=== PATIENT | female | born 1980 | race Caucasian/White ===

== ENCOUNTER 2020-06-21 12:06 | Outpatient (REF) | payer OTHER, SELFPAY ==
--- NOTE | 2020-06-21 12:14 | XR_ITS ---
EXAMINATION: XR CHEST CLINICAL INFORMATION: Positive PPD. COMPARISON: None TECHNIQUE: Frontal view of the chest was obtained. FINDINGS: The lungs are well expanded. There is no focal consolidation, edema, or effusion. No pneumothorax. The cardiomediastinal silhouette is within normal limits. No acute osseous abnormality. XR/XR chest 1V IMPRESSION: Clear lungs.
== END 2020-06-21 12:07 | disposition home or self-care (01) ==
LOC: HO.HMGCX 12:06
PROVIDERS: PCP Internal Medicine; Visit Provider Physician Assistant
DX: R76.11 Nonspecific reaction to tuberculin skin test without active tuberculosis (principal)
CPT/HCPCS: 71045

== ENCOUNTER → 2020-09-26 07:46 | Outpatient (BNVA) | payer OTHER, SELFPAY | PROVIDERS: Visit Provider Orthopaedic Surgery ==

== ENCOUNTER 2021-05-23 08:03 | Outpatient (REF) | payer OTHER, SELFPAY ==
[2021-05-23 11:15] LABS: MANUAL DIFF FLAG NO
[2021-05-23 11:24] LABS: Basophils Percent Auto 0.5 % (0-2); Eosinophils Absolute Auto 0.1 X10*3/uL (0.0-0.4); Eosinophils Percent Auto 1.3 % (0-4); Hemoglobin 12.8 g/dl (12.0-16.0); Imm Gran Abs Auto 0.01 X10*3/uL (0.00-0.03); Imm Gran Pct Auto 0.2 % (0.0-0.4); Lymphocytes Absolute Auto 2.7 X10*3/uL (1.2-4.9); Lymphocytes Percent Auto 42.9 % (20-40); Mean Corpuscular HGB Conc 32.8 g/dl (31.0-35.0); Mean Corpuscular Hemoglobin 28.6 pg (27.0-33.0); Mean Corpuscular Volume 87.2 fL (80-98); Mean Platelet Volume 9.7 fL (9.4-12.3); Monocytes Absolute Auto 0.4 X10*3/uL (0.1-1.2); Monocytes Percent Auto 6.3 % (2-11); Neutrophils Absolute Auto 3.1 X10*3/uL (2.0-8.3); Neutrophils Percent Auto 48.8 % (45-73); Platelet Count 275 X10*3/uL (160-400); Red Blood Count 4.47 X10*6/uL (4.20-5.50); White Blood Count 6.3 X10*3/uL (4.8-10.8)
[2021-05-23 11:43] LABS: Anion Gap 12 (12-20); Blood Urea Nitrogen 12 mg/dL (9-16); Calcium 8.9 mg/dL (8.4-10.2); Carbon Dioxide 23 mmol/L (22-29); Chloride 107 mmol/L (96-108); Estimated Glomerular Filt Rate > 60; Glucose Random 87 mg/dL (60-115); Potassium 3.9 mmol/L (3.3-5.1); Sodium 138 mmol/L (135-145)
== END 2021-05-23 08:04 | disposition home or self-care (01) ==
LOC: HO.HMGCLDS 08:03
PROVIDERS: PCP Internal Medicine; Visit Provider Internal Medicine
DX: Z00.00 Encounter for general adult medical examination without abnormal findings (principal); R51.9 Headache, unspecified
CPT/HCPCS: 36415; 80048; 85025

== ENCOUNTER 2021-07-04 08:17 | Outpatient (REF) | payer OTHER, SELFPAY ==
--- NOTE | ~2021-07-04 | US_ITS ---
EXAMINATION: US ABDOMEN COMPLETE CLINICAL INFORMATION: Unspecified abdominal pain. COMPARISON: None TECHNIQUE: Real-time imaging of the abdominal viscera. FINDINGS: PANCREAS: Normal. ABDOMINAL AORTA: The proximal, mid, and distal segments are normal in caliber. INFERIOR VENA CAVA: Visualized portions are normal. LIVER: The liver is normal in size. The liver contour is normal. Parenchymal echogenicity is normal. There is anechoic cyst in the left hepatic lobe measuring 2.0 x 1.6 x 2.0 cm. There is no intrahepatic biliary duct dilatation seen. GALLBLADDER: There are several echogenic stones with shadowing and positive CHERYL sign. The gallbladder is physiologically distended. The neck of the gallbladder is prominent. No evidence of pericholecystic fluid. COMMON BILE DUCT: Normal in caliber measuring 0.2 cm in diameter. RIGHT KIDNEY: Normal. No hydronephrosis. No renal calculi or focal parenchymal lesions. The kidney measures 11.6 cm in maximum dimension. LEFT KIDNEY: Normal. No hydronephrosis. No renal calculi or focal parenchymal lesions. The kidney measures 12.3 cm in maximum dimension. SPLEEN: Normal. The spleen measures 10.4 cm in maximum dimension. FREE FLUID: None. US/US abdomen complete IMPRESSION: Gallstones with a prominent CHERYL sign. The neck of the gallbladder is prominent. Left hepatic lobe . Rest of the abdominal ultrasound is unremarkable.
== END 2021-07-04 08:18 | disposition home or self-care (01) ==
LOC: HO.US 08:17
PROVIDERS: PCP Internal Medicine; Visit Provider Internal Medicine
DX: R10.9 Unspecified abdominal pain (principal)
CPT/HCPCS: 76700

== ENCOUNTER → 2021-08-08 13:39 | Outpatient (BNVA) | payer OTHER, SELFPAY | PROVIDERS: PCP Internal Medicine; Referring Provider Internal Medicine; Visit Provider Surgery ==

== ENCOUNTER 2022-03-30 19:43 | Inpatient (IN) | payer BC, SELFPAY ==
--- NOTE | 2022-03-30 | ECG_ITS ---
Test Reason : CP Blood Pressure : / mmHG Vent. Rate : 070 BPM Atrial Rate : 070 BPM P-R Int : 156 ms QRS Dur : 096 ms QT Int : 412 ms P-R-T Axes : 026 041 036 degrees QTc Int : 444 ms Normal sinus rhythm T wave abnormality, consider anterior ischemia Abnormal ECG When compared with ECG of 10-FEB-2018 19:29, T wave inversion more evident in Anterior leads Referred By: Generic ED Physician Electronically Signed By:SINDHU CRANDALL
--- NOTE | ~2022-03-30 | US_ITS ---
EXAMINATION: US ABDOMEN LIMITED CLINICAL INFORMATION: Right upper quadrant abdomen pain. COMPARISON: 07/04/2021 TECHNIQUE: Real-time imaging of the right upper quadrant abdominal viscera. FINDINGS: PANCREAS: Obscured by overlying bowel gas. LIVER: The liver is normal in size. The liver contour is normal. Parenchymal echogenicity is normal. Redemonstrated left hepatic lobe cyst measuring 1.7 x 1.2 x 1.7 cm. There is no intrahepatic biliary duct dilatation seen. GALLBLADDER: There are numerous gallstones resulting in a wall echo shadow sign. Borderline gallbladder wall thickening. Right upper quadrant tenderness was reported during the exam. COMMON BILE DUCT: Normal in caliber measuring 0.4 cm in diameter. RIGHT KIDNEY: No hydronephrosis. No renal calculi or focal parenchymal lesions. The kidney measures 12.2 cm in maximum dimension. FREE FLUID: None. US/US abdomen limited IMPRESSION: Cholelithiasis with borderline gallbladder wall thickening and right upper quadrant tenderness. If there is clinical concern for acute cholecystitis, nuclear medicine hepatobiliary scan may be helpful.
[2022-03-30 19:46] VITALS: BP 132/55; PULSE 74; RESP 18; TEMP 36.8; O2SAT 100; BMI 31.0
[2022-03-30 20:15] LABS: MANUAL DIFF FLAG NO
[2022-03-30 20:16] LABS: Basophils Percent Auto 0.5 % (0-2); Eosinophils Absolute Auto 0.1 X10*3/uL (0.0-0.4); Eosinophils Percent Auto 1.3 % (0-4); Hematocrit 36.5 % (37.0-47.0); Hemoglobin 12.2 g/dl (12.0-16.0); Imm Gran Abs Auto 0.02 X10*3/uL (0.00-0.03); Imm Gran Pct Auto 0.2 % (0.0-0.4); Lymphocytes Absolute Auto 4.5 X10*3/uL (1.2-4.9); Lymphocytes Percent Auto 51.4 % (20-40); Mean Corpuscular HGB Conc 33.4 g/dl (31.0-35.0); Mean Corpuscular Hemoglobin 28.2 pg (27.0-33.0); Mean Corpuscular Volume 84.5 fL (80.0-98.0); Mean Platelet Volume 9.1 fL (9.4-12.3); Monocytes Absolute Auto 0.6 X10*3/uL (0.1-1.2); Monocytes Percent Auto 6.9 % (2-11); Neutrophils Absolute Auto 3.4 x10*3/uL (2.0-8.3); Neutrophils Percent Auto 39.7 % (45-73); Platelet Count 235 X10*3/uL (160-400); Red Blood Count 4.32 X10*6/uL (4.20-5.50); Red Cell Distribution Width 11.9 % (11.0-16.0); White Blood Count 8.7 X10*3/uL (4.8-10.8)
--- NOTE | 2022-03-30 20:20 | ED.ABDPAIN ---
HPI - Abdominal Pain General Chief Complaint: Abdominal Pain Stated Complaint: trouble breathing Source: patient Mode of arrival: ambulatory Limitations: no limitations History of Present Illness HPI narrative: 41-year-old female presents with sharp, intermittent, squeezing, intense right upper quadrant abdominal pain that took her breath away approximately 20 minutes after eating. She has known gallbladder disease, was evaluated by Dr. Kelly approximately 6 months ago with suggestion for cholecystectomy if her symptoms persisted. She has altered her diet over the past 6 months, and states that this pain has been the worst and most intense out of all her gallbladder attacks. She does not report fevers, chills, chest pain or pressure, palpitations, abdominal distention, dysuria, hematuria, or weakness. MD elicited complaint: abdominal pain Pertinent past history: other (Cholelithiasis) Onset (ago): hour(s) Pain Consistency: intermittent and colicky Location: RUQ Severity: severe Pain scale (0-10): 10 Quality: cramping, stabbing and sharp Radiation: back Exacerbating factors: eating and other (Palpation) Relieving factors: nothing Associated symptoms: denies other symptoms Related Data Home Medications Medication Instructions Recorded Confirmed No Known Home Meds 05/17/21 08/08/21 Allergies Allergy/AdvReac Type Severity Reaction Status Date / Time poison robbie extract Allergy Unknown UNKNOWN Verified 03/30/22 19:49 [POISON ROBBIE] Review of Systems Review of Systems Constitutional: No Fever, No Chills ENT/Mouth: No Ear Pain, No Hoarseness, No sore throat Eyes: No Eye Pain, No Swelling, No Redness, No Foreign Body Cardiovascular: No Chest Pain, No SOB Respiratory: No Cough, No Dyspnea Gastrointestinal: No Nausea, No Vomiting, No Diarrhea, positive right upper quadrant abdominal Pain Genitourinary: No Dysuria, No Hematuria Musculoskeletal: No joint pain, No Myalgias, No Joint Swelling Skin: No Skin lacerations, No rash Neuro: No Weakness, No Numbness, No Paresthesias, No Loss of Consciousness, No Dizziness, No Headache Psych: No Anxiety/Panic, No Depression Heme/Lymph: no easy bruising, no Lymphadenopathy Endocrine: No Polyuria, No Polydipsia Yes all other systems are reviewed and are negative [facility] Past Medical History Attestation statement: The following information was validated with the patient. Source: old records reviewed Medical History (Updated 03/31/22 @ 00:28 by Missy Quijano NP) Gallstone Surgical History No pertinent past surgical history Social History Social History Housing: House Alcohol intake: never Patient Tobacco Use Status: Never used Tobacco e-Cigarette/Vaping Use: Never Used Use of substances other than those prescribed or required for medical reasons: No Advance Directives: No Advance Directives Information Provided: No Patient : No Current occupational status: employed Physical Exam ED Vital Signs: Vital Signs - 24 hr 03/30/22 19:46 03/30/22 23:12 03/30/22 23:45 Temperature 98.2 F Pulse Rate 74 71 79 Respiratory Rate 18 18 Blood Pressure 132/55 L 109/63 129/75 Pulse Oximetry 100 100 100 Oxygen Delivery Method Room Air Room Air Room Air BMI result Body Mass Index 31.0 Appearance: Alert. Oriented X3. No acute distress. Eyes: Pupils equal, round and reactive to light. Sclera nonicteric. ENT: Pharynx normal. Neck: Normal inspection. Neck supple. CVS: Normal heart rate and rhythm. Pulses normal. Respiratory: No respiratory distress. Breath sounds normal. Abdomen: Soft and right upper quadrant tenderness to palpation. Positive Barrera, negative McBurney. Skin: Skin warm and dry. Normal skin color. Normal skin turgor. Extremities: No lower extremity edema. Moves all extremities against resistance. Neuro: No motor deficit. No sensory deficit. Cranial nerves 2-12 intact. Course Course Course Narrative: 41-year-old female presents with right upper quadrant pain that started after eating. Has known gallbladder disease, was evaluated by Dr. Kelly approximately 6 months ago for similar circumstances and was recommended to have a cholecystectomy if symptoms persisted. She presents today because the right upper quadrant abdominal pain is so sharp, intense, squeezing and has taking her breath away. She states this is the worst colic episode that she has had since her evaluation. Will order labs, pain medications, fluids, and right upper quadrant abdominal sounds. Patient did decline morphine, she states that she is unsure about taking this medication because she has to drive. 00:00 ultrasound indicative of cholelithiasis with borderline gallbladder wall thickening and right upper quadrant tenderness on exam. CBC is within normal limits, BUN 24, was given a L of fluids, AST 79, ALT 41, lipase normal, alk-phos is normal. I did discuss this case with Dr. Quach, consulted with Dr. De Guzman, plan of care is to admit for cholecystectomy in the morning. I will keep patient NPO. Patient verbalized understanding of this and agrees to this plan. Consultations Consultation #1: Gab Time: 00:08 MDM - Abdominal Pain MDM Narrative Medical decision making narrative: Cholecystitis, cholelithiasis Differential Diagnosis Differential diagnosis: Likely abdominal pain Medical Records Attestation: I reviewed the patient's medical records. Lab Data Attestation: I reviewed the patient's lab results. Result diagrams: 03/30/22 20:08 03/30/22 20:08 Labs: Lab Results 03/30/22 03/30/22 03/30/22 Range/Units 20:08 20:08 20:23 WBC 8.7 (4.8-10.8) X10*3/uL RBC 4.32 (4.20-5.50) X10*6/uL Hgb 12.2 (12.0-16.0) g/dl Hct 36.5 L (37.0-47.0) % MCV 84.5 (80.0-98.0) fL MCH 28.2 (27.0-33.0) pg MCHC 33.4 (31.0-35.0) g/dl RDW 11.9 (11.0-16.0) % Plt Count 235 (160-400) X10*3/uL MPV 9.1 L (9.4-12.3) fL Immature Gran % (Auto) 0.2 (0.0-0.4) % Neut % (Auto) 39.7 L (45-73) % Lymph % (Auto) 51.4 H (20-40) % [place] % (Auto) 6.9 (2-11) % Eos % (Auto) 1.3 (0-4) % Baso % (Auto) 0.5 (0-2) % Lymph # (Auto) 4.5 (1.2-4.9) X10*3/uL [place] # (Auto) 0.6 (0.1-1.2) X10*3/uL Eos # (Auto) 0.1 (0.0-0.4) X10*3/uL Baso # (Auto) 0.0 (0.0-0.2) X10*3/uL Abs Immat Gran (auto) 0.02 (0.00-0.03) X10*3/uL Absolute Neuts (auto) 3.4 (2.0-8.3) x10*3/uL Absolute Nucleated RBC 0.000 (0.0-0.012) X10*3/uL Nucleated RBC % (auto) 0.0 (0.0-0.2) /100WBC Sodium 139 (135-145) mmol/L Potassium 3.7 (3.3-5.1) mmol/L Chloride 103 (96-108) mmol/L Carbon Dioxide 26 (22-29) mmol/L Anion Gap 14 (12-20) BUN 24 H (9-16) mg/dL Creatinine 0.81 (0.5-1.4) mg/dL Estim Creat Clear Calc 104.0 Estimated GFR > 60 Random Glucose 100 (60-115) mg/dL Calcium 8.7 (8.4-10.2) mg/dL Total Bilirubin 0.7 (0.0-1.0) mg/dL AST 79 H (5-31) U/L ALT 41 H (0-31) U/L Alkaline Phosphatase 65 (39-117) U/L Total Protein 6.9 (6.5-8.0) g/dL Albumin 4.2 (3.5-5.0) g/dL Lipase 70 (8-78) U/L Urine Color Yellow Urine Appearance Turbid Urine pH 7.5 (5.0-8.0) Ur Specific [place] 1.025 (1.005-1.025) Urine Protein Negative (Neg-Trace) mg/dL Urine Glucose (UA) Negative (Negative) mg/dL Urine Ketones Negative (Negative) mg/dL Urine Blood Moderate (2+) H (Negative) Urine Nitrite Negative (Negative) Ur Leukocyte Esterase Negative (Negative) Urine RBC >20 H (0-2) /HPF Urine WBC 0-5 (0-5) /HPF Ur Squamous Epith Cells 0-2 (0-2) /HPF Urine Bacteria None Seen (None Seen) Hyaline Casts 0-2 (0-2) /LPF Urine Test (NEGATIVE) 03/30/22 Range/Units 20:23 WBC (4.8-10.8) X10*3/uL RBC (4.20-5.50) X10*6/uL Hgb (12.0-16.0) g/dl Hct (37.0-47.0) % MCV (80.0-98.0) fL MCH (27.0-33.0) pg MCHC (31.0-35.0) g/dl RDW (11.0-16.0) % Plt Count (160-400) X10*3/uL MPV (9.4-12.3) fL Immature Gran % (Auto) (0.0-0.4) % Neut % (Auto) (45-73) % Lymph % (Auto) (20-40) % [place] % (Auto) (2-11) % Eos % (Auto) (0-4) % Baso % (Auto) (0-2) % Lymph # (Auto) (1.2-4.9) X10*3/uL [place] # (Auto) (0.1-1.2) X10*3/uL Eos # (Auto) (0.0-0.4) X10*3/uL Baso # (Auto) (0.0-0.2) X10*3/uL Abs Immat Gran (auto) (0.00-0.03) X10*3/uL Absolute Neuts (auto) (2.0-8.3) x10*3/uL Absolute Nucleated RBC (0.0-0.012) X10*3/uL Nucleated RBC % (auto) (0.0-0.2) /100WBC Sodium (135-145) mmol/L Potassium (3.3-5.1) mmol/L Chloride (96-108) mmol/L Carbon Dioxide (22-29) mmol/L Anion Gap (12-20) BUN (9-16) mg/dL Creatinine (0.5-1.4) mg/dL Estim Creat Clear Calc Estimated GFR Random Glucose (60-115) mg/dL Calcium (8.4-10.2) mg/dL Total Bilirubin (0.0-1.0) mg/dL AST (5-31) U/L ALT (0-31) U/L Alkaline Phosphatase (39-117) U/L Total Protein (6.5-8.0) g/dL Albumin (3.5-5.0) g/dL Lipase (8-78) U/L Urine Color Urine Appearance Urine pH (5.0-8.0) Ur Specific [place] (1.005-1.025) Urine Protein (Neg-Trace) mg/dL Urine Glucose (UA) (Negative) mg/dL Urine Ketones (Negative) mg/dL Urine Blood (Negative) Urine Nitrite (Negative) Ur Leukocyte Esterase (Negative) Urine RBC (0-2) /HPF Urine WBC (0-5) /HPF Ur Squamous Epith Cells (0-2) /HPF Urine Bacteria (None Seen) Hyaline Casts (0-2) /LPF Urine Test NEGATIVE (NEGATIVE) Imaging Data US - abdomen: Attestation: I personally reviewed and interpreted this imaging study as follows: Radiologist's impression: CLINICAL INFORMATION: Right upper quadrant abdomen pain. COMPARISON: 07/04/2021 TECHNIQUE: Real-time imaging of the right upper quadrant abdominal viscera. FINDINGS: PANCREAS: Obscured by overlying bowel gas. LIVER: The liver is normal in size. The liver contour is normal. Parenchymal echogenicity is normal. Redemonstrated left hepatic lobe cyst measuring 1.7 x 1.2 x 1.7 cm. There is no intrahepatic biliary duct dilatation seen. GALLBLADDER: There are numerous gallstones resulting in a wall echo shadow sign. Borderline gallbladder wall thickening. Right upper quadrant tenderness was reported during the exam. COMMON BILE DUCT: Normal in caliber measuring 0.4 cm in diameter. RIGHT KIDNEY: No hydronephrosis. No renal calculi or focal parenchymal lesions. The kidney measures 12.2 cm in maximum dimension. FREE FLUID: None. US/US abdomen limited IMPRESSION: Cholelithiasis with borderline gallbladder wall thickening and right upper quadrant tenderness. If there is clinical concern for acute cholecystitis, nuclear medicine hepatobiliary scan may be helpful. Discharge Plan Discharge Clinical Impression: Cholelithiasis and cholecystitis without obstruction Patient Disposition: Admitted As Inpatient
--- NOTE | 2022-03-30 20:22 | PC.NURSE ---
pt a&ox3, vss, reports that abd pain had now resolved - hx gallstones. urine sample obtained, labs drawn in triage.
[2022-03-30 20:34] LABS: Alanine Aminotransferase 41 U/L (0-31); Albumin Level 4.2 g/dL (3.5-5.0); Alkaline Phosphatase 65 U/L (39-117); Anion Gap 14 (12-20); Aspartate Amino Transferase 79 U/L (5-31); Bilirubin Total 0.7 mg/dL (0.0-1.0); Blood Urea Nitrogen 24 mg/dL (9-16); Calcium 8.7 mg/dL (8.4-10.2); Carbon Dioxide 26 mmol/L (22-29); Chloride 103 mmol/L (96-108); Estimated Glomerular Filt Rate > 60; Glucose Random 100 mg/dL (60-115); Lipase 70 U/L (8-78); Potassium 3.7 mmol/L (3.3-5.1); Sodium 139 mmol/L (135-145); Total Protein 6.9 g/dL (6.5-8.0)
[2022-03-30 20:50] LABS: Appearance Urine Turbid; Color Urine Yellow; Glucose Urine UA Negative (Negative); Leukocyte Esterase Urine Negative (Negative); Nitrite Urine Negative (Negative); PH 7.5 (5.0-8.0); Specific Gravity - Urine 1.025 (1.005-1.025); Urine Blood Moderate (2+) (Negative); Urine Ketones Negative (Negative); Urine Protein Negative (Neg-Trace)
[2022-03-30 20:56] LABS: Bacteria Urine None Seen (None Seen); Hyaline Casts Urine 0-2 /LPF (0-2); RBC Urine >20 /HPF (0-2); Squamous Epithelial Cell Urine 0-2 /HPF (0-2); WBC Urine 0-5 /HPF (0-5)
[2022-03-30 21:05] LABS: UPreg QC Valid YES; Urine Pregnancy NEGATIVE (NEGATIVE)
[2022-03-30] MEDS: 0.9 % Sodium Chloride 1,000 ML 999 ML IVCONT (22:50)
[2022-03-30 23:12] VITALS: BP 109/63; PULSE 71; RESP 18; O2SAT 100
[2022-03-30] MEDS: ondansetron HCL 4 MG/2 ML VIAL IVPUSH (23:13)
[2022-03-30 23:45] VITALS: BP 129/75; PULSE 79; O2SAT 100
[2022-03-31] VITALS (14 sets, daily range): BP systolic 106–129; BP diastolic 58–80; PULSE 54–78; RESP 16–28; TEMP 36.7–37.1; O2SAT 96–100
[2022-03-31] MEDS: Acetaminophen 325 MG TABLET 650 MG PO (00:09)
[2022-03-31] MEDS: Morphine Sulfate 4 MG/ML CARTRIDGE IVPUSH (00:29)
[2022-03-31] MEDS: Dextrose 5 % and 0.9 % NaCl 1,000 ML 100 ML IVCONT ×2 (00:54→16:46)
[2022-03-31 02:59] LABS: COVID-19 Test Negative (Negative)
--- NOTE | 2022-03-31 03:11 | PC.NURSE ---
Assumed care of patient. She states her pain is improved and she feels much better. Changed into hospital gown. CLothing/belongings in bag labled
--- NOTE | 2022-03-31 07:20 | PHA.MEDREC ---
Pharmacy Consult ? Medication Reconciliation Pharmacy has reviewed the medication reconciliation done by Sun[facility].
[2022-03-31] MEDS: 0.9 % Sodium Chloride Flush 3 ML SYRINGE IVFLUSH ×2 (07:50→16:49)
--- NOTE | 2022-03-31 08:02 | PC.NURSE ---
pt a/o x 3 no sob/marcy noted skin pink warm dry speaks in full sentences. dr. lorenz at bedsider earlier pt aware of plan of care. lungs - cta. heart sounds - regular, abd soft/nt. denies any pain/disc.
--- NOTE | 2022-03-31 08:21 | PC.NURSE ---
rn to rn report given pt aware of plan of care for transfer to room 470.
--- NOTE | 2022-03-31 08:34 | PC.NURSE ---
rn to rn report given to daniel ([facility]).
--- NOTE | 2022-03-31 09:11 | P.HPGS_ITS ---
History of Present Illness History of Present Illness Date of Service: 03/31/22 Chief complaint: biliary colic Narrative: Shanika Nevarez is a 41 year old female presented with recurrent episode of epigastric and right upper quadrant the epigastrium pain. The pain began after celebrating her son's birthday republican on Thursday evening. The pain was associated with shortness of breath which seemed to worsen over the next hour. She subsequent presents emergency department for further evaluation. Since she has a previous history of biliary colic and was previously evaluated by me for similar symptoms. She feels this is the worst episode as the shortness of breath with very severe. She currently feels comfortable after receiving morphine. She denies nausea, vomiting, fever, chills, diarrhea, or constipation. workup in the emergency department revealed a normal WBC. Ultrasound the abdomen revealed gallstones within the gallbladder and mild wall thickening. There is also tenderness upon palpation of the gallbladder. Findings were suggestive of acute cholecystitis. Review of Systems Review of Systems: Yes all other systems are reviewed and are negative Constitutional: Constitutional: Denies chills, Denies fever(s), Denies headache(s), Denies poor appetite and Denies weakness ENT: Denies headache(s) Cardiovascular: Cardiovascular: Denies chest pain, Denies irregular heart rhythm, Denies palpitations and Reports dyspnea Respiratory: Respiratory: Denies cough, Denies excessive phlegm production and Reports dyspnea Gastrointestinal: Gastrointestinal: Reports abdominal pain, Denies bloating, Denies change in bowel habits, Denies constipation, Denies heartburn, Denies diarrhea, Denies nausea and Denies vomiting Genitourinary: Genitourinary: Denies urinary frequency Musculoskeletal: Musculoskeletal: Denies back pain, Denies muscle weakness and Denies numbness Integumentary/Breasts: Skin/Breast: Denies changing lesions and Denies unusual bruising Neurologic: Denies headache(s), Denies numbness, Denies paresthesias and Denies weakness Psychiatric: Psychiatric: Denies anxiety and Denies depression Endocrine: Endocrine: Denies palpitations Hematologic/Lymphatic: Hematologic/Lymphatic: Denies lymphadenopathy [facility] Past Medical History Medical History (Updated 03/31/22 @ 00:28 by Missy Quijano NP) Gallstone Surgical History Surgical History No pertinent past surgical history Social History Social History Housing: House Alcohol intake: never Patient Tobacco Use Status: Never used Tobacco e-Cigarette/Vaping Use: Never Used Use of substances other than those prescribed or required for medical reasons: No Advance Directives: No Advance Directives Information Provided: No Patient : No Current occupational status: employed Meds Allergies Allergy/AdvReac Type Severity Reaction Status Date / Time poison robbie extract Allergy Unknown UNKNOWN Verified 03/30/22 19:49 [POISON ROBBIE] Active Medications: Current Medications Fentanyl (Fentanyl Citrate/Pf 100 Mcg/2 Ml Vial) 25 mcg IVPUSH Q5M PRN; Prot ocol PRN Reason: Pain, Moderate (Pain Scale 4-6 Dextrose/Sodium Chloride (D5ns) 1,000 mls @ 100 mls/hr IVCONT .Q10H [facility] Last Admin: 03/31/22 00:54 Dose: 100 mls/hr Lactated Ringer's (Lr) 1,000 mls @ 50 mls/hr IVCONT .Q20H [facility] Morphine Sulfate (Morphine Sulfate 2 Mg/Ml Cartridge) 2 mg IVPUSH RQ4H PRN; Protocol PRN Reason: Pain, Severe (Pain Scale 7-10) Ondansetron HCl (Ondansetron Hcl 4 Mg/2 Ml Vial) 4 mg IVPUSH ONCE PRN PRN Reason: Nausea and Vomiting Oxycodone HCl (Oxycodone Hcl Immed Release 5 Mg Tablet) 5 mg PO ONCE PRN PRN Reason: Pain, Severe (Pain Scale 7-10) Sodium Chloride (0.9 % Sodium Chloride Flush 3 Ml Syringe) 3 ml IVFLUSH QSHIFT [facility] Last Admin: 03/31/22 07:50 Dose: 3 ml Home Medications Medication Instructions Recorded Confirmed Last Taken Type No Known Home Meds 05/17/21 03/31/22 Unknown History Physical Exam Vital Signs: Vital Signs: Last Vital Signs Temp 98.2 F 03/31/22 08:54 Pulse 57 03/31/22 08:54 Resp 20 03/31/22 08:54 BP 118/70 03/31/22 08:54 Pulse Ox 98 03/31/22 08:54 O2 Del Method 03/31/22 08:54 BMI result Body Mass Index 31.0 Const: General: cooperative and no acute distress Nutritional Appearance: well nourished Orientation/consciousness: patient oriented x3 Limitations: no limitations HEENT: Head: Yes normocephalic and Yes atraumatic Ears: hearing grossly normal bilaterally Resp: Effort & Inspection: normal respiratory effort, no audible wheezes, no cough and no respiratory distress Cardio: Jugular venous distension: no JVD GI: Inspection: Yes normal to inspection Palpation (GI): Soft to palpation, Tenderness to palpation present (GI) in the RUQ and Barrera's sign positive, no guarding, not rigid and No Rebound tenderness present Percussion: Yes normal to percussion Auscultation: normal bowel sounds Skin: Other: Warm, dry, no rash Neuro: General: patient oriented x3 Extrem: General: Yes no clubbing, cyanosis or edema Results Results Labs: Short CBC 03/30/22 Range/Units 20:08 WBC 8.7 (4.8-10.8) X10*3/uL Hgb 12.2 (12.0-16.0) g/dl Hct 36.5 L (37.0-47.0) % Plt Count 235 (160-400) X10*3/uL BMP 03/30/22 20:08 Sodium 139 Potassium 3.7 Chloride 103 Carbon Dioxide 26 BUN 24 H Creatinine 0.81 Calcium 8.7 Liver Function 03/30/22 Range/Units 20:08 Total Bilirubin 0.7 (0.0-1.0) mg/dL AST 79 H (5-31) U/L ALT 41 H (0-31) U/L Alkaline Phosphatase 65 (39-117) U/L Albumin 4.2 (3.5-5.0) g/dL Urine 03/30/22 03/30/22 Range/Units 20:23 20:23 Urine Color Yellow Urine Appearance Turbid Urine pH 7.5 (5.0-8.0) Ur Specific [place] 1.025 (1.005-1.025) Urine Protein Negative (Neg-Trace) mg/dL Urine Glucose (UA) Negative (Negative) mg/dL Urine Test NEGATIVE (NEGATIVE) Assessment and Plan (1) Cholelithiasis and cholecystitis without obstruction: Status: Acute Plan 41-year-old female patient presenting with complaints of epigastric and right upper quadrant after eating a fatty meal. The pain was associated with shortness of breath. She presented to the emergency department was noted to have Tenderness in the right upper quadrant with a positive Barrera sign and a normal WBC. ultrasound the abdomen revealed gallstones within the gallbladder as well as wall thickening suggestive of acute cholecystitis. We discussed options including continued non operative management with diet restrictions verses la paroscopic cholecystectomy or possible open cholecystectomy. Given the severity of her symptoms on this occasion with the soreness of breath I recommended a laparoscopic cholecystectomy as the best option. After discussion of the procedure, risks, and alternatives, she consents to the laparoscopic or possible open cholecystectomy. She has been added onto the operative schedule for today. Quality Stroke Does the patient have a stroke diagnosis?: No VTE Prior VTE?: No VTE Risk Level:: Surgical - low VTE Device Contraindication: Treatment Not Indicated VTE Drug Contraindication: Treatment Not Indicated Procedures Date of Service Date of Service: 03/31/22
--- NOTE | 2022-03-31 09:24 | MHC.CM.PN ---
CM met with Patient at bedside. Patient lives in a house with her and 2 Children ages 10 & 12 years of age. Home/self care is the goal and CM has initiated and will follow for dc planning. Patient has received [employer] vax X3 and her PCP is Dr. Ananth Lemons.Patient is functionally independent and working.
--- NOTE | 2022-03-31 11:02 | P.CONAN_ITS ---
[facility] Active Problems Active Problems: All Active Problems (Updated 03/31/22 @ 00:28 by Missy Quijano NP) Positive PPD (Acute) Knee pain (Acute) Patellofemoral pain syndrome of left knee (Acute) Abdominal pain (Acute) Biliary colic (Acute) Cholelithiasis and cholecystitis without obstruction (Acute) Past Medical History Medical History Gallstone Family History Family history of problems with anesthesia: No Surgical History Surgical History No pertinent past surgical history History of Problems with Anesthesia: Unobtainable Social History Social History Household Members: Family Housing: House Do you presently have visiting nurse or other home services: No Alcohol intake: never Patient Tobacco Use Status: Never used Tobacco e-Cigarette/Vaping Use: Never Used Use of substances other than those prescribed or required for medical reasons: No Have you been hit, kicked, punched, or otherwise hurt by someone within the past year? If so, by whom?: No Do you feel safe in your current relationship?: Yes Is there a partner from a previous relationship who is making you feel unsafe now?: No Are you made to feel afraid or neglected: No Are you DNR?: No Advance Directives: No Advance Directives Information Provided: No Advance Directives on File: No Do you have thoughts of harming others: None Do you have a plan to hurt others: No Plan Recently lost weight without trying: No Nutrition Risks: No Nutritional Risk Patient : No : No Poor oral hygiene: No service: No Current occupational status: employed Meds Allergies Allergy/AdvReac Type Severity Reaction Status Date / Time poison robbie extract Allergy Unknown UNKNOWN Verified 03/30/22 19:49 [POISON ROBBIE] Active Medications: Current Medications Fentanyl (Fentanyl Citrate/Pf 100 Mcg/2 Ml Vial) 25 mcg IVPUSH Q5M PRN; Protocol PRN Reason: Pain, Moderate (Pain Scale 4-6 Dextrose/Sodium Chloride (D5ns) 1,000 mls @ 100 mls/hr IVCONT .Q10H NINA Last Admin: 03/31/22 00:54 Dose: 100 mls/hr Lactated Ringer's (Lr) 1,000 mls @ 50 mls/hr IVCONT .Q20H [facility] Cefotetan Disodium 2 gm/ (Sodium Chloride) 50 mls @ 100 mls/hr IV PREOP ONE Stop: 03/31/22 11:21 Morphine Sulfate (Morphine Sulfate 2 Mg/Ml Cartridge) 2 mg IVPUSH RQ4H PRN; Protocol PRN Reason: Pain, Severe (Pain Scale 7-10) Ondansetron HCl (Ondansetron Hcl 4 Mg/2 Ml Vial) 4 mg IVPUSH ONCE PRN PRN Reason: Nausea and Vomiting Oxycodone HCl (Oxycodone Hcl Immed Release 5 Mg Tablet) 5 mg PO ONCE PRN PRN Reason: Pain, Severe (Pain Scale 7-10) Sodium Chloride (0.9 % Sodium Chloride Flush 3 Ml Syringe) 3 ml IVFLUSH QSHIFT [facility] Last Admin: 03/31/22 07:50 Dose: 3 ml Home Medications Medication Instructions Recorded Confirmed Last Taken Type No Known Home Meds 05/17/21 03/31/22 Unknown History Exam Exam Date and Time: March 31, 2022 1102 Height,Weight and Vital Signs: Height 5 ft 7 in Weight 89.811 kg Last Vital Signs Temp 98.2 F 03/31/22 10:12 Pulse 55 03/31/22 10:12 Resp 16 03/31/22 10:12 BP 123/66 03/31/22 10:12 Pulse Ox 100 03/31/22 10:12 O2 Del Method 03/31/22 10:12 Pertinent Lab Results Pertinent Lab Results: Laboratory Tests 03/30/22 03/30/22 03/30/22 20:08 20:08 20:23 WBC 8.7 RBC 4.32 Hgb 12.2 Hct 36.5 L MCV 84.5 MCH 28.2 MCHC 33.4 RDW 11.9 Plt Count 235 MPV 9.1 L Immature Gran % (Auto) 0.2 Neut % (Auto) 39.7 L Lymph % (Auto) 51.4 H [place] % (Auto) 6.9 Eos % (Auto) 1.3 Baso % (Auto) 0.5 Lymph # (Auto) 4.5 [place] # (Auto) 0.6 Eos # (Auto) 0.1 Baso # (Auto) 0.0 Abs Immat Gran (auto) 0.02 Absolute Neuts (auto) 3.4 Absolute Nucleated RBC 0.000 Nucleated RBC % (auto) 0.0 Sodium 139 Potassium 3.7 Chloride 103 Carbon Dioxide 26 Anion Gap 14 BUN 24 H Creatinine 0.81 Estim Creat Clear Calc 104.0 Estimated GFR > 60 Random Glucose 100 Calcium 8.7 Total Bilirubin 0.7 AST 79 H ALT 41 H Alkaline Phosphatase 65 Total Protein 6.9 Albumin 4.2 Lipase 70 Urine Color Yellow Urine Appearance Turbid Urine pH 7.5 Ur Specific [place] 1.025 Urine Protein Negative Urine Glucose (UA) Negative Urine Ketones Negative Urine Blood Moderate (2+) H Urine Nitrite Negative Ur Leukocyte Esterase Negative Urine RBC >20 H Urine WBC 0-5 Ur Squamous Epith Cells 0-2 Urine Bacteria None Seen Hyaline Casts 0-2 Urine Test COVID-19 (TEQUILA) COVID-19 [employer] 03/30/22 03/31/22 20:23 02:27 WBC RBC Hgb Hct MCV MCH MCHC RDW Plt Count MPV Immature Gran % (Auto) Neut % (Auto) Lymph % (Auto) [place] % (Auto) Eos % (Auto) Baso % (Auto) Lymph # (Auto) [place] # (Auto) Eos # (Auto) Baso # (Auto) Abs Immat Gran (auto) Absolute Neuts (auto) Absolute Nucleated RBC Nucleated RBC % (auto) Sodium Potassium Chloride Carbon Dioxide Anion Gap BUN Creatinine Estim Creat Clear Calc Estimated GFR Random Glucose Calcium Total Bilirubin AST ALT Alkaline Phosphatase Total Protein Albumin Lipase Urine Color Urine Appearance Urine pH Ur Specific [place] Urine Protein Urine Glucose (UA) Urine Ketones Urine Blood Urine Nitrite Ur Leukocyte Esterase Urine RBC Urine WBC Ur Squamous Epith Cells Urine Bacteria Hyaline Casts Urine Test NEGATIVE COVID-19 (TEQUILA) Negative COVID-19 Clin Com See Note Airway Mallampati Class: II TM Dist: >3cm Neck ROM: Full Loose/Missing/Broken Teeth: No Heart: rrr Lungs: clear Assessment and Plan Final Anesthetic Review Family History of Problems with Anesthesia: No History of Problems with Anesthesia: Unobtainable NPO: Yes ASA Class: I Final Preanesthetic Review: Meds/Allgs Chart Reviewed, Consent Obtained/Reviewed and Anes Risks/Benef Reviewed Patient Risk: Low Procedure Risk: Low Anesthetic Plan Anesthetic Plan: GA Disposition: Standard PACU
--- NOTE | 2022-03-31 12:45 | W.PM.OPN ---
Operative Note Operative Note Date of Service: 03/31/22 Narrative: Preoperative diagnosis: Acute cholecystitis due to cholelithiasis Postoperative diagnosis: Same Procedure: Laparoscopic cholecystectomy Surgeon: Zeb Kelly MD Account Supervisor: MEREDITH De Anda Anesthesia: General endotracheal Indications for procedure: 42-year-old the patient admitted through the department with complaints of abdominal pain in the right upper quadrant found the of acute cholecystitis. Operative findings: Acute cholecystitis due to cholelithiasis Specimen: gallbladder Estimated blood loss: 10 mls Complications: none Procedure details: Patient was brought to the OR and placed in a supine position. After administering general anesthesia the patient's abdomen was prepped with ChloraPrep and draped in a sterile fashion. Local anesthesia consisting of 0.5% Sensorcaine without epinephrine was infiltrated in a periumbilical region. A 5 mm incision was made above the umbilicus in a transverse fashion. The Veress needle was then inserted while elevating abdominal cavity with towel clips. After positive drop test the abdomen was insufflated to a pressure of 15 mm of mercury. The Veress needle was then removed and a 5 mm trocar inserted. The camera was inserted in the abdomen explored. A 12 mm trocar was then placed in the epigastrium. Two 5 mm trocars placed in the right upper quadrant by the seismic survey assistant. The patient was placed in reverse Trendelenburg positioning and rotated to the left. The gallbladder was grasped with the fundus and retracted cephalad by the seismic survey assistant. The infundibulum was then grasped and retracted away from the liver bed, also by the seismic survey assistant. The Dolphin dissected was then used by the surgeon to dissect the peritoneum off the infundibulum to reveal the junction with the cystic duct. Cystic artery was noted slightly medial and posterior to the cystic duct. After obtaining a critical view the cystic duct was doubly clipped and divided. The cystic artery was then doubly clipped and divided. The gallbladder was then dissected off the liver bed using electrocautery with an L hook. Hemostasis was assured all times using the electrocautery. When the gallbladder is completely dissected off the liver bed was placed in an Endo-Catch bag and brought out through the epigastric incision. The gallbladder was sent to pathology for further examination. The abdomen was then re-examined. The liver bed was irrigated and suctioned dry. No bleeding or bile leak could be identified. CO2 was then evacuated and all trocars removed. Fascia was closed at the epigastric incision using a [id number] 0 Polysorb suture. Skin was closed in all incisions using a subcuticular 4 0 Polysorb suture by both the surgeon and seismic survey assistant. Sterile dressings consisting of Steri-Strips, 2 x 2 gauze, and Tegaderm were then applied. The patient tolerated the procedure well. Sponge instrument and needle counts reported as correct. The patient was transferred to PACU in stable condition.
[2022-03-31] MEDS: oxyCODONE HCl Immed Release 5 MG TABLET PO (13:37)
[2022-03-31] MEDS: fentaNYL citrate/PF 100 MCG/2 ML VIAL 25 MCG IVPUSH ×2 (13:38→13:43)
--- NOTE | 2022-03-31 17:48 | PM.DS ---
DS: Providers Provider Date of Service: 03/31/22 Date of admission: 03/31/22 00:31 Date of discharge: 03/31/22 Primary care physician: Ananth Lemons MD Admitting clinician: Beatriz De Guzman Consults: 03/31/22 00:28 Consult to General Surgery Stat Consulting Provider: Beatriz De Guzman Reason for consultation: Cholelithiasis with cholecystitis Has provider been notified: Yes Attending physician on discharge: Zeb Kelly DS: Diagnosis Discharge Diagnosis (1) Cholelithiasis and cholecystitis without obstruction: Status: Acute DS: Summary Hospital Course Hospital Course: Shanika Nevarez is a 41 year old female presented with recurrent episode of epigastric and right upper quadrant the epigastrium pain.? The pain began after celebrating her son's birthday alliance party on Thursday evening.? The pain was associated with shortness of breath which seemed to worsen over the next hour.? She subsequent presented emergency department for further evaluation.? She has a previous history of biliary colic and was previously evaluated by me for similar symptoms.? She feels this episode is worse as the pain was associated with shortness of breath.? She denied nausea, vomiting, fever, chills, diarrhea, or constipation. Workup in the emergency department revealed a normal WBC.? Ultrasound of the abdomen revealed gallstones within the gallbladder and mild wall thickening.? There is also tenderness upon palpation of the gallbladder.? Findings were suggestive of acute cholecystitis. On examination the patient appears comfortable, in no acute distress. Abdominal examination does reveal tenderness in the right upper quadrant with positive Barrera sign, without peritoneal signs. Laboratories revealed normal WBC, with minimally elevated transaminases. Patient was taken to the OR on 03/31/2022 for a laparoscopic cholecystectomy. Operative findings were consistent with acute cholecystitis due to cholelithiasis. She tolerated the procedure very well and was subsequently started on a low-fat diet postoperatively. She remained comfortable on oral pain medication was able to tolerate her diet without nausea, vomiting, or increased abdominal pain. She was subsequently discharged to home on 03/31/2022 and stable condition. Discharge instructions were to avoid lifting greater than 10 lb for the next 2 weeks. She should also remain on a low-fat diet for the next month. I have asked her to return to the office in 1 week for a wound examination. She should call sooner for any new concerns. Status at Discharge Functional status at discharge: independent ambulation Overall status at discharge: patient is back to baseline Time Spent with Patient Time attestation: Total time spent providing and/or coordinating discharge services: Discharge coordination time: Less than 30 minutes Quality: Safe Use of Opioids Does Pt have an Active Cancer Diagnosis on the Problem List?: No Quality: Stroke Does the patient have a stroke diagnosis?: No Physical Exam Vital Signs: Vital Signs: Last Vital Signs Temp 98.4 F 03/31/22 15:00 Pulse 54 03/31/22 15:00 Resp 18 03/31/22 15:00 BP 122/66 03/31/22 15:00 Pulse Ox 97 03/31/22 15:00 O2 Del Method 03/31/22 15:00 O2 Flow Rate 4 03/31/22 12:58 BMI result Body Mass Index 31.0 Const: General: cooperative and no acute distress Nutritional Appearance: well nourished Orientation/consciousness: patient oriented x3 Limitations: no limitations HEENT: Head: Yes normocephalic and Yes atraumatic Ears: hearing grossly normal bilaterally Resp: Effort & Inspection: normal respiratory effort, no audible wheezes, no cough and no respiratory distress Cardio: Jugular venous distension: no JVD GI: Other: Trocar incisions were clean, dry, and intact. Inspection: Yes normal to inspection Palpation (GI): Soft to palpation, Tenderness to palpation present (GI) (Incisional tenderness), no guarding, not rigid and No Rebound tenderness present Percussion: Yes normal to percussion Auscultation: normal bowel sounds Skin: Other: Warm, dry, no rash Neuro: General: patient oriented x3 Extrem: General: Yes no clubbing, cyanosis or edema DS: Data Data Completed and Pending Pending studies at discharge: Pending at discharge 03/31/22 12:35 Surgical [PTH] Routine Labs on day of discharge: Laboratory Results - last 24 hr 03/30/22 03/30/22 03/30/22 20:08 20:08 20:23 WBC 8.7 RBC 4.32 Hgb 12.2 Hct 36.5 L MCV 84.5 MCH 28.2 MCHC 33.4 RDW 11.9 Plt Count 235 MPV 9.1 L Immature Gran % (Auto) 0.2 Neut % (Auto) 39.7 L Lymph % (Auto) 51.4 H [place] % (Auto) 6.9 Eos % (Auto) 1.3 Baso % (Auto) 0.5 Lymph # (Auto) 4.5 [place] # (Auto) 0.6 Eos # (Auto) 0.1 Baso # (Auto) 0.0 Abs Immat Gran (auto) 0.02 Absolute Neuts (auto) 3.4 Absolute Nucleated RBC 0.000 Nucleated RBC % (auto) 0.0 Sodium 139 Potassium 3.7 Chloride 103 Carbon Dioxide 26 Anion Gap 14 BUN 24 H Creatinine 0.81 Estim Creat Clear Calc 104.0 Estimated GFR > 60 Random Glucose 100 Calcium 8.7 Total Bilirubin 0.7 AST 79 H ALT 41 H Alkaline Phosphatase 65 Total Protein 6.9 Albumin 4.2 Lipase 70 Urine Color Yellow Urine Appearance Turbid Urine pH 7.5 Ur Specific [place] 1.025 Urine Protein Negative Urine Glucose (UA) Negative Urine Ketones Negative Urine Blood Moderate (2+) H Urine Nitrite Negative Ur Leukocyte Esterase Negative Urine RBC >20 H Urine WBC 0-5 Ur Squamous Epith Cells 0-2 Urine Bacteria None Seen Hyaline Casts 0-2 Urine Test COVID-19 (TEQUILA) COVID-19 [employer] Com 03/30/22 03/31/22 20:23 02:27 WBC RBC Hgb Hct MCV MCH MCHC RDW Plt Count MPV Immature Gran % (Auto) Neut % (Auto) Lymph % (Auto) [place] % (Auto) Eos % (Auto) Baso % (Auto) Lymph # (Auto) [place] # (Auto) Eos # (Auto) Baso # (Auto) Abs Immat Gran (auto) Absolute Neuts (auto) Absolute Nucleated RBC Nucleated RBC % (auto) Sodium Potassium Chloride Carbon Dioxide Anion Gap BUN Creatinine Estim Creat Clear Calc Estimated GFR Random Glucose Calcium Total Bilirubin AST ALT Alkaline Phosphatase Total Protein Albumin Lipase Urine Color Urine Appearance Urine pH Ur Specific [place] Urine Protein Urine Glucose (UA) Urine Ketones Urine Blood Urine Nitrite Ur Leukocyte Esterase Urine RBC Urine WBC Ur Squamous Epith Cells Urine Bacteria Hyaline Casts Urine Test NEGATIVE COVID-19 (TEQUILA) Negative COVID-19 Clin Com See Note Imaging US - abdomen: Radiologist's impression: ITS Impressions Abdomen Ultrasound 03/30/22 22:30 IMPRESSION: Cholelithiasis with borderline gallbladder wall thickening and right upper quadrant tenderness. If there is clinical concern for acute cholecystitis, nuclear medicine hepatobiliary scan may be helpful. Discharge Plan Discharge Patient Disposition: Home, Self-Care Discharge Diagnosis: Acute cholecystitis, cholelithiasis Referrals: Vesta WrenAnanth Ireland MD [Physician] - 1 Week Zeb Kelly MD [Physician] - 1 Week Discharge Medications: New oxycodone 5 mg tablet 5 mg PO Q6H PRN (Reason: pain (scale score 7-10)) Qty: 15 0RF Rx Instructions: Partial Fill upon patient request. Discharge Orders: Discharge Order (Routine); Ordered 03/31/22 Ordered By: Zeb Kelly Diet: Low fat, low cholesterol Activity on Discharge: No heavy lifting Stand Alone Forms: Patient Portal Discharge page Activity Restrictions/Additional Instructions: No lifting > 10 pounds for 2 weeks Low fat diet No driving for one week Ice to the incision x 24 hours Remove dressing in 3 days Follow up in office in one week. Care Plan Goals: Return to normal activity and diet Health Concerns: Abdominal pain in the right upper quadrant Plan of Treatment: Laparoscopic cholecystectomy 03/31/2022 Assessment: Acute cholecystitis due to cholelithiasis Patient Instructions: Laparoscopic Cholecystectomy (DC) Discharge Date/Time: 03/31/22 18:25
== END 2022-03-31 18:25 | disposition home or self-care (01) | DRG 263 ==
LOC: HO.ED 03-31 01:39 → HO.EDOVER 03-31 01:40 → HO.IMC 03-31 07:33
PROVIDERS: Admitting Provider Surgery; Emergency Provider Emergency Medicine; PCP Internal Medicine; Visit Provider Surgery
PROC: 0FT44ZZ Resection of Gallbladder, Percutaneous Endoscopic Approach (ICD-10-PCS; CPT 47562; principal; 2022-03-31 10:50)
DX: K80.00 Calculus of gallbladder with acute cholecystitis without obstruction (principal); Z20.822 Contact with and (suspected) exposure to COVID-19
CPT/HCPCS: 47562; 36415; 76705; 80053; 81001; 81025; 83690; 85025; 87635; 88304; 93005; 99285; J0330; J1100; J1885; J2250; J2270; J2405; J2795; J3010

== ENCOUNTER 2023-04-10 12:43 | Outpatient (AMB) | payer OTHER, SELFPAY ==
[2023-04-10 12:44] VITALS: BP 122/62; PULSE 65; O2SAT 99; BMI 29.8
--- NOTE | 2023-04-10 12:44 | A.OFFPC_ITS ---
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 Garment Manufacturing: Not Required per policy Accompanied by: Self / Same As Patient Allergies poison robbie extract [POISON ROBBIE] Allergy (Unknown, Verified 04/10/23 12:45) UNKNOWN Tobacco use date assessed: 05/17/21 Dental Screening Dental Screen Date: 04/10/23 Did you have a dental visit in the last 12 months?: Yes Did you have a dental problem in the last 6 months where you did not have access to dental care?: No Was dental information given to patient?: Patient has dentist HPI Annual PE HPI Details healthy [facility] Medical History Cholelithiasis and cholecystitis without obstruction Gallstone Surgical History History of laparoscopic cholecystectomy (03/31/22) No pertinent past surgical history Social History Household Members: Family Housing: House Do you presently have visiting nurse or other home services: No Alcohol intake: never Patient Tobacco Use Status: Never used Tobacco e-Cigarette/Vaping Use: Never Used Second Hand Smoke Exposure: No service: No Current occupational status: employed Cognitive needs: No Hearing needs: No Vision needs: No Questionnaire PHQ-9 Over the last 2 weeks, how often have you been bothered by any of the following problems? 1. Little interest or pleasure in doing things: not at all 2. Feeling down, depressed, or hopeless: not at all 3. Trouble falling or staying asleep, or sleeping too much: not at all 4. Feeling tired or having little energy: not at all 5. Poor appetite or overeating: not at all 6. Feeling bad about yourself - or that you are a failure or have let yourself or your family down: not at all 7. Trouble concentrating on things, such as reading the newspaper or watching television: not at all 8. Moving or speaking so slowly that other people could have noticed. Or the opposite - being so fidgety or restless that you have been moving around a lot more than usual: not at all 9. Thoughts that you would be better off or of hurting yourself in some way: not at all Total score: 0 Depression Screening Interpretation: Negative 88477 - PHQ-9 Billing: Yes Source: Developed by Drs. Martín Awan, Mai Telles, Tavon Sr and colleagues, with an educational angel from [employer]. Thrive Questionnaire Date Thrive assessed: 04/10/23 I am a: Patient What is your living situation today?: I have a steady place to live Within the past 12 months, did the food you bought not last and you didn't have the money to get more?: Never true Within the past 12 months, did you worry whether your food would run out before you got money to buy more?: Never true Do you have trouble paying for medicines?: No Do you have trouble getting transportation to medical appointments?: No Do you have trouble paying your heating and electricity bill?: No Do you have trouble taking care of your child, family member or friend?: No Do you have trouble with day-to-day activities such as bathing, preparing meals, shopping, managing finances, etc.?: No Are you currently unemployed and looking for a job?: No Are you interested in more education?: No Please select the resources that you would like help with: None AUDIT C Alcohol Use Questionnaire (AUDIT-C) 1. How often do you have a drink containing alcohol?: Never 3. How often do you have six or more drinks on one occasion?: Never Total Score: 0 ROSALIE-7 AMB Questionnaire ROSALIE-7 Date ROSALIE - 7 assessed: 04/10/23 Feeling nervous, anxious, or on edge: 0 = Not at all Not being able to stop or control worryin = Not at all Worrying too much about different things: 0 = Not at all Trouble relaxin = Not at all Being so restless that it is hard to sit still: 0 = Not at all Becoming easily annoyed or irritable: 0 = Not at all Feeling afraid as if something awful might happen: 0 = Not at all Total ROSALIE-7 score (0-4 normal; 5-9 mild; 10-14 moderate; 15-21 severe): 0 Source: Developed by Drs. Martín Awan, Mai Telles, Tavon Sr and colleagues, with an educational angel from [employer]. ROSALIE-7 Assessment Billing ROSALIE-7 Assessment Tool: ROSALIE-7 Assessment 90804 Review of Systems Const Denies chills, Denies fatigue, Denies headache(s) and Denies weight loss Eyes Denies change in vision, Denies diplopia and Denies eye pain ENT Denies vertigo, Denies dizziness, Denies headache(s) and Denies nasal discharge Card Denies chest pain, Denies rapid heart rate and Denies dyspnea on exertion Resp Denies chest congestion, Denies cough, Denies pain with cough and Denies dyspnea on exertion GI Denies abdominal pain, Denies hematochezia and Denies change in bowel habits Musc Denies myalgias, Denies arthralgias and Denies joint swelling Skin/Breast Denies lesions and Denies unusual bruising Neuro Denies vertigo, Denies dizziness, Denies headache(s) and Denies focal weakness Endo Denies fatigue Physical exam (Primary Care) Vital Signs: Last Vital Signs Pulse 65 04/10/23 12:44 BP 122/62 04/10/23 12:44 Pulse Ox 99 04/10/23 12:44 Oxygen Delivery Method Room Air 04/10/23 12:44 BMI result Body Mass Index 29.8 Tobacco/Smoking Status: Tobacco use Status Tobacco use date assessed 05/17/21 04/10/23 12:52 Patient Tobacco Use Status Never used Tobacco 04/10/23 12:52 e-Cigarette/Vaping Use Never Used 04/10/23 12:52 PHQ-9: PHQ-9 Score PHQ-9: Total score 0 04/10/23 12:52 Depression Screening Interpretation: Negative Thrive Assessment: Date of Thrive Assessment Date Thrive assessed 04/10/23 04/10/23 12:52 Const General: cooperative, healthy appearing and no acute distress Orientation/consciousness: oriented to person, oriented to place and oriented to time HENMD Head: Yes normal to inspection, Yes normocephalic and Yes atraumatic Mouth: Normal oral and palatal mucosa present and tongue normal Throat: Yes posterior oropharynx normal and Yes uvula midline Eyes General: appearance normal, both eyes and all related structures Neck Neck: Yes normal visual inspection, Yes full ROM and Yes no lymphadenopathy Thyroid: Thyroid normal Carotids: normal carotid upstroke Chest Chest palpation & inspection: normal inspection of the chest Resp Effort & Inspection: normal respiratory effort and able to speak in complete sentences Auscultation: clear to auscultation bilaterally Cardio Jugular venous distension: no JVD Palpation: normal PMI Rate: regular rate Rhythm: regular rhythm Heart sounds: S1 normal heart sound present and S2 normal heart sound present GI Inspection: Yes normal to inspection Palpation (GI): Soft to palpation and No hepatosplenomegaly present Auscultation: normal bowel sounds General: Yes no CVA tenderness Back/Spine/Pelvis Back: no CVA tenderness Skin General skin exam: no rashes or lesions noted Neuro General: oriented to person, oriented to place and oriented to time Extrem General: Yes normal to inspection and Yes full ROM Assessment and Plan Assessment & Plan (1) Physical exam: Code(s): Z00.00 - Encounter for general adult medical examination without abnormal findings Plan: stable; do labs Orders: Orders Lipid Panel Today E78.5 - Hyperlipidemia, unspecified Thyroid Stimulating Hormone Today E03.9 - Hypothyroidism, unspecified Comprehensive [place]. Panel Fast Today N28.9 - Disorder of kidney and ureter, unspecified Complete Blood Count Auto Diff Today D64.9 - Anemia, unspecified Medications: New triamcinolone acetonide 0.5% 1 appl topical TID 15 grams 3RF methylprednisolone (Medrol (Jean-Pierre)) PO PER PKG DIR 21 ea 0RF Coding Level of Care Code Est Pt Prev Care 40-64y(55665) Diagnoses Physical exam Z00.00 Additional Codes ROSALIE-7 Assessment Billing - ROSALIE-7 Assessment Tool: ROSALIE-7 Assessment 89949 ([id number])
== END 2023-04-10 13:10 | disposition home or self-care (01) ==
PROVIDERS: PCP Internal Medicine; Visit Provider Internal Medicine
DX: Z00.00 Encounter for general adult medical examination without abnormal findings (principal)
CPT/HCPCS: 99396

== ENCOUNTER 2025-03-22 10:09 | Outpatient (AMB) | payer OTHER, SELFPAY ==
--- NOTE | 2025-03-22 10:13 | MHC.PC.OV ---
Vital Signs 03/22/25 10:14 Height 5 ft 7 in Weight 197 lb BMI 30.9 BP 118/72 Blood Pressure Location Lt brachial Position Sitting Respiration 18 Pulse 63 Pulse Source Pulse Oximeter Temp 97.1 F Temp Source Temporal Artery Scan Pulse Oximetry (%) 99 Oxygen Delivery Method Room Air Intake Visit Reasons: annual exam/arianna Dr krishna Supervisor Lead Burning Required: No Accompanied by: Self / Same As Patient Allergies poison robbie extract (POISON ROBBIE) Allergy (Unknown, Verified 03/22/25 10:37) UNKNOWN Medication List - Last Reconciled 03/22/25 by HERBIE Gauthier No Known Home Meds Tobacco use date assessed: 03/22/25 Dental Screening Dental Screen Date: 03/22/25 Did you have a dental visit in the last 12 months?: Yes Did you have a dental problem in the last 6 months where you did not have access to dental care?: No Was dental information given to patient?: Patient has dentist HPI annual exam/arianna Dr krishna HPI Details Dentist: up to date Eye: up to date Snellen: Right: Left: Corrected vision: yes -reading glasses STI screening: Colonoscopy:cologuard ordered OBGYN: referral placed Pap Smer: referred mammogram ordered PHQ-9: Flu:does not take this COVID: x3 Tdap:2017 Diet:regular Exercise:cardio and weight The patient is a 44-year-old female presenting for a wellness visit and evaluation of abdominal pain. The abdominal pain is described as a squeezing sensation under the ribs, occurring intermittently over the past two months, particularly when bending or exercising. The patient reports that the pain is not frequent, occurring approximately once every two weeks, and is similar to a cramp. There is a history of gallbladder removal, and the patient denies current heartburn but notes occasional discomfort in the right upper quadrant. In 2021, the patient had elevated liver enzymes, though not critically high, with a noted level of 79 against a reference range of 5 to 31. The patient has not had recent blood work, and an abdominal ultrasound is planned to rule out any abnormalities. The patient recalls a past instance of blood in the urine, which was not recent and requires re-evaluation. The patient engages in regular exercise a couple of times a week, including both cardio and strength training. She consumes coffee occasionally and denies alcohol and tobacco use. [facility] Medical History Cholelithiasis and cholecystitis without obstruction Gallstone Surgical History History of laparoscopic cholecystectomy (03/31/22) No pertinent past surgical history Social History Household Members: Family Housing: House Do you presently have visiting nurse or other home services: No Alcohol intake: never Patient Tobacco Use Status: Never used Tobacco e-Cigarette/Vaping Use: Never Used Second Hand Smoke Exposure: No service: No Current occupational status: employed Cognitive needs: No Hearing needs: No Vision needs: No Questionnaire PHQ-9 Over the last 2 weeks, how often have you been bothered by any of the following problems? 1. Little interest or pleasure in doing things: not at all 2. Feeling down, depressed, or hopeless: not at all 3. Trouble falling or staying asleep, or sleeping too much: not at all 4. Feeling tired or having little energy: not at all 5. Poor appetite or overeating: not at all 6. Feeling bad about yourself - or that you are a failure or have let yourself or your family down: not at all 7. Trouble concentrating on things, such as reading the newspaper or watching television: not at all 8. Moving or speaking so slowly that other people could have noticed. Or the opposite - being so fidgety or restless that you have been moving around a lot more than usual: not at all 9. Thoughts that you would be better off or of hurting yourself in some way: not at all Total score: 0 Depression Screening Interpretation: Negative Depression Screening Done: Yes 48683 - PHQ-9 Billing: Yes Source: Developed by Drs. Martín Awan, Mai Telles, Tavon Sr and colleagues, with an educational angel from [employer]. Thrive Questionnaire Date Thrive assessed: 03/22/25 I am a: Patient What is your living situation today?: I have a steady place to live Within the past 12 months, did the food you bought not last and you didn't have the money to get more?: Often true Within the past 12 months, did you worry whether your food would run out before you got money to buy more?: I choose not to answer this question Do you have trouble paying for medicines?: I choose not to answer this question Do you have trouble getting transportation to medical appointments?: I choose not to answer this question Do you have trouble paying your heating and electricity bill?: I choose not to answer this question Do you have trouble taking care of your child, family member or friend?: I choose not to answer this question Do you have trouble with day-to-day activities such as bathing, preparing meals, shopping, managing finances, etc.?: I choose not to answer this question Are you currently unemployed and looking for a job?: I choose not to answer this question Are you interested in more education?: I choose not to answer this question Please select the resources that you would like help with: None Currently or been in a relationship where the following occur: I choose not to answer THRIVE Score: 1 AUDIT C Alcohol Use Questionnaire (AUDIT-C) 1. How often do you have a drink containing alcohol?: Never 3. How often do you have six or more drinks on one occasion?: Never Total Score: 0 ROSALIE-7 AMB Questionnaire ROSALIE-7 Date ROSALIE - 7 assessed: 03/22/25 Feeling nervous, anxious, or on edge: 0 = Not at all Not being able to stop or control worryin = Not at all Worrying too much about different things: 0 = Not at all Trouble relaxin = Not at all Being so restless that it is hard to sit still: 0 = Not at all Becoming easily annoyed or irritable: 0 = Not at all Feeling afraid as if something awful might happen: 0 = Not at all Total ROSALIE-7 score (0-4 normal; 5-9 mild; 10-14 moderate; 15-21 severe): 0 Source: Developed by Drs. Martín Awan, Mai Telles, Tavon Sr and colleagues, with an educational angel from [employer] ROSALIE-7 Assessment Billing ROSALIE-7 Assessment Tool: ROSALIE-7 Assessment 58066 Review of Systems Const Denies headache(s) Eyes Denies loss of vision ENT Denies vertigo, Denies dizziness, Denies headache(s) and Denies sore throat Card Denies chest pain, Denies leg edema and Denies lightheadedness Resp Denies cough, Denies hemoptysis and Denies wheezing GI Reports abdominal pain, Denies melena, Denies constipation, Denies diarrhea and Denies vomiting Denies urinary frequency, Denies dysuria and Denies urinary urgency Musc Denies arthralgias, Denies joint swelling, Denies numbness and Denies tingling Neuro Denies Abnormal speech present, Denies behavioral changes, Denies vertigo, Denies dizziness, Denies headache(s), Denies loss of vision, Denies memory loss, Denies numbness and Denies tingling Psych Denies anxiety, Denies behavioral changes, Denies depression, Denies memory loss and Denies panic attacks Loc/Lymph Denies easy bleeding and Denies easy bruising Aller/Immun Denies wheezing Physical exam (Primary Care) Vital Signs: Last Vital Signs Temp 97.1 F 03/22/25 10:14 Pulse 63 03/22/25 10:14 Resp 18 03/22/25 10:14 BP 118/72 03/22/25 10:14 Pulse Ox 99 03/22/25 10:14 Oxygen Delivery Method Room Air 03/22/25 10:14 BMI result Body Mass Index 30.9 Tobacco/Smoking Status: Tobacco use Status Tobacco use date assessed 03/22/25 03/22/25 10:15 Patient Tobacco Use Status Never used Tobacco 03/22/25 10:15 e-Cigarette/Vaping Use Never Used 03/22/25 10:15 PHQ-9: PHQ-9 Score PHQ-9: Total score 0 03/23/25 01:32 Depression Screening Interpretation: Negative Thrive Assessment: Date of Thrive Assessment Date Thrive assessed 03/22/25 03/22/25 10:15 Currently or been in a relationship where the following occur: I choose not to answer Const General: healthy appearing, no acute distress, alert and awake Nutritional Appearance: well nourished Orientation/consciousness: oriented to person, oriented to place and oriented to time HENMT Ears: TM's normal bilaterally General nose exam: Normal nasal mucous membranes and turbinates present Eyes Conjunctivae: conjunctivae normal Sclerae: sclerae normal Pupils: Equal, round and reactive pupils present Neck Neck: Yes no lymphadenopathy and Yes no JVD Thyroid: Thyroid normal Carotids: no bruits Resp Effort & Inspection: normal respiratory effort and not tachypneic Auscultation: no crackles, no rales, no rhonchi and no wheezes Cardio Rate: regular rate Rhythm: regular rhythm Heart sounds: no murmurs and normal S1 and S2 GI Palpation (GI): Soft to palpation, nontender, no hepatomegaly and no splenomegaly Auscultation: normal bowel sounds Skin General skin exam: no rashes or lesions noted and dry skin Neuro General: oriented to person, oriented to place and oriented to time Cranial nerves: Yes Equal, round and reactive pupils present Speech: No Abnormal speech present Gait exam (Neuro): Normal gait present Motor exam (neuro): no tremor noted Deep tendon reflexes (DTR's): Right triceps reflex intensity grade: 2+, Left triceps reflex intensity grade: 2+, Rt Biceps (C5, C6): 2+, Left biceps reflex intensity grade: 2+, Right brachioradialis reflex intensity grade: 2+, Left brachioradialis reflex intensity grade: 2+, Right patellar reflex intensity grade: 2+ and Left patellar reflex intensity grade: 2+ Extrem Right upper extremity: full ROM Left upper extremity: full ROM Right lower extremity: full ROM; no edema Left lower extremity: full ROM; no edema Psych Mental Status: mental status grossly normal Speech and movement: Normal speech and movement present Affect: normal affect Attitude: cooperative Thought process: Normal thought process present Coding Level of Care Code Est Pt Prev Care 40-64y(54546) Diagnoses Physical exam Z00.00 Abdominal pain, unspecified abdominal location R10.9 Abdominal location: unspecified location Additional Codes ROSALIE-7 Assessment Billing - ROSALIE-7 Assessment Tool: ROSALIE-7 Assessment 90991 ([id number]) PHQ-9 - 84372 - PHQ-9 Billing: Yes ([id number]) Time Spent (min) 39 Assessment & Plan Assessment & Plan (1) Physical exam: Code(s): Z00.00 - Encounter for general adult medical examination without abnormal findings Category: Medical (2) Abdominal pain: Code(s): R10.9 - Unspecified abdominal pain Category: Medical Qualifiers: Abdominal location: unspecified location Qualified Code(s): R10.9 - Unspecified abdominal pain Plan The plan includes conducting an abdominal ultrasound to investigate the cause of the intermittent abdominal pain and to rule out any abnormalities, given the history of elevated liver enzymes. Blood work will be performed to reassess liver enzyme levels and evaluate overall health status. Preventative care measures include scheduling a colon cancer screening using Cologuard, ordering a mammogram, and updating the Pap smear, as the last one was performed 13 years ago. The patient is advised to maintain regular exercise and a healthy lifestyle, and to consider vaccinations as part of routine health maintenance. Patient was informed and verbally consented to the use of an ambient scribe for clinic note documentation during this visit. Orders: Orders Complete Blood Count Auto Diff 03/22/25 K80.50 - Calculus of bile duct without cholangitis or cholecystitis without obstruction, R10.9 - Unspecified abdominal pain, Z00.00 - Encounter for general adult medical examination without abnormal findings Comprehensive [place]. Panel Fast 03/22/25 K80.50 - Calculus of bile duct without cholangitis or cholecystitis without obstruction, R10.9 - Unspecified abdominal pain, Z00.00 - Encounter for general adult medical examination without abnormal findings Vitamin D 25-OH Total 03/22/25 K80.50 - Calculus of bile duct without cholangitis or cholecystitis without obstruction, R10.9 - Unspecified abdominal pain, Z00.00 - Encounter for general adult medical examination without abnormal findings Erythrocyte Sedimentation Rate 03/22/25 K80.50 - Calculus of bile duct without cholangitis or cholecystitis without obstruction, R10.9 - Unspecified abdominal pain, Z00.00 - Encounter for general adult medical examination without abnormal findings MM tomosynthesis screening BI Today Z12.31 - Encounter for screening mammogram for malignant neoplasm of breast TSH reflex Free T4 03/22/25 K80.50 - Calculus of bile duct without cholangitis or cholecystitis without obstruction, R10.9 - Unspecified abdominal pain, Z00.00 - Encounter for general adult medical examination without abnormal findings UA CC w/rflx Micro + Cult 03/22/25 K80.50 - Calculus of bile duct without cholangitis or cholecystitis without obstruction, R10.9 - Unspecified abdominal pain, Z00.00 - Encounter for general adult medical examination without abnormal findings CRP High Sensitivity 03/22/25 K80.50 - Calculus of bile duct without cholangitis or cholecystitis without obstruction, R10.9 - Unspecified abdominal pain, Z00.00 - Encounter for general adult medical examination without abnormal findings US abdomen complete Today R10.9 - Unspecified abdominal pain Referrals [employer] Referral Z12.4 - Encounter for screening for malignant neoplasm of cervix Cologuard Test Z12.11 - Encounter for screening for malignant neoplasm of colon, Z12.12 - Encounter for screening for malignant neoplasm of rectum
[2025-03-22 10:14] VITALS: BP 118/72; PULSE 63; RESP 18; TEMP 36.2; O2SAT 99; BMI 30.9
--- OUTSIDE RECORDS SUMMARY | 2025-03-22 11:19 | XMS_ITS | Clinical Summary ---
Author Organization [facility] Address [address] [facility] [address] [place] [id number] Phone Care Team Providers Care Taxi Servicer Name Role Phone Pcp, Unknown Primary Care Provider Unavailabl e Immunizations Immunization Administration Dates Next Due BCG 12/10/2020 Hepatitis B Adult 12/10/2020 MMR 12/10/2020,06/18/2017 Tdap 06/16/2017 Social History Tobacco Use Types Packs/Day Years Used Date Smoking Tobacco: Never Assessed Education Answer Date Recorded Are you interested in more education? Not on lisa e 11/29/2022 Are you concerned about learning? Not on file 11/29/2022 No 11/29/2022 No 11/29/2022 Digital Access Answer Date Recorded No 12/27/2022 No 12/27/2022 No 12/27/2022 Reliable internet access at home? Not on file 12/27/2022 Device with a working camera? Not on file Comments Unknown Sex and Gender Information Value Date Recorded Sex Assigned at Not on file Legal Sex Female 11:05 AM EDT Gender Identity Not on file Sexual Orientation Not on file Plan of Treatment Health Maintenance Due Date Last Done Comments LIPID PANEL 1979 DEPRESSION SCREENING 1991 SMOKING Hx and SMOKELESS TOBACCO SCREENING 1992 HEPATITIS C SCREENING 1997 HIV ONE-TIME SCREENING (18-6 5 YEARS) 1997 PAP SMEAR 2000 MAMMOGRAM 2019 COVID-19 VACCINE (2023-2 5 season) 2024 04/12/2021, 03/22/2021 COLOGUARD 2024 COLONOSCOPY 2024 COLORECTAL CANCER SCREENING 2024 FIT TEST 2024 FOBT 2024 SIGMOIDOSCOPY 2024 VIRTUAL COLONOSCOPY 2024 Adult Td,Tdap Booster 06/16/2027 06/16/2017 HEPATITIS A VACCINES Aged Out No long er eligible based on patient's age to complete this topic HIB VACCINES Aged Out No longer eligi ble based on patient's age to complete this topic MENINGOCOCCAL VACCINES (ACWY) Aged Out No longer eligible based on patient's age to complete this topic MENINGOCOCCAL VACCINES (B) Aged Out N o longer eligible based on patient's age to complete this topic PNEUMOCOCCAL VACCINES (0-49 years) Aged Out No longer eligible b ased on patient's age to complete this topic Medical Devices Not on file Insurance O O O Member Subscriber Plan / Payer (Ef fective 2020-Present) Name:Shanika Anand Relation to Subscriber:Spouse Name:SAUNDRA ANAND Date of :1980 (Home) Address: [address] [place] [address] Payer ID:Not on file Type:O Address: [place] [id number] [place], [place] [address] [place] [address] [address] [place] [address] [place] [address] [place] [place] [address] HMO [facility] HMO Care Teams Taxi Servicer Relationship Specialty Start Date End Date Pcp, Unknown PCP - General 01/07/21 Additional Source Comments The information contained in this document represents components of the legal health record. It is not the complete legal health record.[facility]
== END 2025-03-22 10:59 | disposition home or self-care (01) ==
LOC: HO.HMCH 10:10
DX: Z00.00 Encounter for general adult medical examination without abnormal findings (principal); R10.9 Unspecified abdominal pain

== ENCOUNTER → 2025-03-22 10:09 | Outpatient (BNVA) | payer OTHER, SELFPAY | PROVIDERS: PCP Internal Medicine | DX: Z00.00 Encounter for general adult medical examination without abnormal findings (principal); R10.11 Right upper quadrant pain | CPT/HCPCS: 96127 ==

== ENCOUNTER 2025-04-24 08:25 | Outpatient (REF) | payer OTHER, SELFPAY ==
[2025-04-24 08:59] LABS: MANUAL DIFF FLAG NO
--- OUTSIDE RECORDS SUMMARY | 2025-04-24 09:37 | XMS_ITS | Clinical Summary ---
Author Organization [facility] Address [address] [facility] [address] [place] [phone] Phone Care Team Providers Care Tailings Dam Laborer Name Role Phone Pcp, Unknown Primary Care [...] YEARS) 1997 PAP SMEAR 2000 MAMMOGRAM 2019 COLOGUARD 2024 COLONOSCOPY 2024 COLORECTAL CANCER SCREENING 2024 FIT TEST 2024 FOBT 2024 SIGMOIDOSCOPY 2024 VIRTUAL COLONOSCOPY 2024 INFLUENZA VACCINE (#1) 2025 05/30/2020 COVID-19 VACCINE (2024-2 6 season) 2025 04/12/2021, 03/22/2021 Adult Td,Tdap Booster 06/16/2027 06/16/2017 HEPATITIS A [...] Devices Not on file Insurance [place] [address] [place], [place] [address] [place], [place] [address] [place] [place] [address] [place] [address] [place] [place] [address] [place] [address] [place] [address] [place] [address] HMO Care Teams Tailings Dam Laborer Relationship Specialty Start Date End Date Pcp, Unknown PCP - General 01/07/21 Additional Source Comments The information contained in this document represents components of the legal health record. It is not the complete legal health record.[facility]
[2025-04-24 09:39] LABS: Hematocrit 42.5 % (37.0-47.0); Hemoglobin 13.8 g/dl (12.0-16.0); Imm Gran Abs Auto 0.01 X10*3/uL (0.00-0.03); Imm Gran Pct Auto 0.1 % (0.0-0.4); Lymphocytes Absolute Auto 3.1 X10*3/uL (1.2-4.9); Mean Corpuscular HGB Conc 32.5 g/dl (31.0-35.0); Mean Corpuscular Hemoglobin 28.1 pg (27.0-33.0); Mean Corpuscular Volume 86.6 fL (80.0-98.0); NRBC Abs Auto 0.000 X10*3/uL (0.0-0.012); NRBC Pct Auto 0.0 /100WBC (0.0-0.2); Platelet Count 279 X10*3/uL (160-400); Red Blood Count 4.91 X10*6/uL (4.20-5.50); White Blood Count 7.2 X10*3/uL (4.8-10.8)
[2025-04-24 09:54] LABS: Appearance Urine Clear; Glucose Urine UA Negative (Negative); PH 5.5 (5.0-9.0); Specific Gravity - Urine 1.025 (1.005-1.025)
[2025-04-24 10:11] LABS: Sodium 138 mmol/L (135-145)
[2025-04-24 10:12] LABS: Alanine Aminotransferase 26 U/L (0-31); Albumin Level 4.5 g/dL (3.5-5.0); Alkaline Phosphatase 67 U/L (39-117); Anion Gap 8 (12-20); Aspartate Amino Transferase 23 U/L (5-31); Blood Urea Nitrogen 17 mg/dL (9-16); Calcium 9.1 mg/dL (8.4-10.2); Carbon Dioxide 26 mmol/L (22-29); Chloride 108 mmol/L (96-108); Estimated Glomerular Filt Rate > 60; Potassium 4.2 mmol/L (3.3-5.1); Total Protein 7.0 g/dL (6.5-8.0)
== END 2025-04-24 08:26 | disposition home or self-care (01) ==
LOC: HO.LAB 08:25
DX: Z00.00 Encounter for general adult medical examination without abnormal findings (principal); K80.50 Calculus of bile duct without cholangitis or cholecystitis without obstruction; R10.9 Unspecified abdominal pain
CPT/HCPCS: 36415; 80053; 81003; 82306; 84443; 85025; 85652; 86141

== ENCOUNTER 2025-05-08 08:13 | Outpatient (REF) | payer OTHER, SELFPAY ==
--- NOTE | ~2025-05-08 | US_ITS ---
CLINICAL HISTORY: R10.9 - Unspecified abdominal pain US abdomen complete with color Doppler Comparison: None Findings: The visualized pancreas, aorta, and inferior vena cava are unremarkable. Liver normal size and mildly echogenic. Right lobe 15.0 cm length. No focal hepatic masses. Common duct 3.0 mm diameter. Post cholecystectomy. Patent portal vein Right kidney normal size, 12.0 cm in length. Normal cortical width and echotexture. No solid or cystic renal masses. No nephrolithiasis. No hydronephrosis. Left kidney normal, 10.4 cm in length. Normal cortical width and echotexture. No solid or cystic renal masses. No nephrolithiasis. No hydronephrosis. Spleen measures 11.2 cm. No splenic masses. No ascites. No lymphadenopathy. Impression: 1. Hepatic steatosis. Post cholecystectomy. This document has been electronically signed by: Hakan Rhodes MD on 05/08/2025 09:35:31
== END 2025-05-08 08:14 | disposition home or self-care (01) ==
LOC: HO.HMGCX 08:13
DX: R10.9 Unspecified abdominal pain (principal)
CPT/HCPCS: 76700

== ENCOUNTER → 2025-05-08 08:19 | Outpatient (BNV) | payer OTHER, SELFPAY | PROVIDERS: Visit Provider Radiology Diagnostic Radiology | DX: K76.0 Fatty (change of) liver, not elsewhere classified (principal); Z90.49 Acquired absence of other specified parts of digestive tract | CPT/HCPCS: 76700 ==

== ENCOUNTER 2025-05-10 07:50 | Outpatient (REF) | payer OTHER, SELFPAY ==
--- OUTSIDE RECORDS SUMMARY | 2025-05-10 07:52 | XMS_ITS | Clinical Summary ---
Author Organization [facility] Address [address] [facility] [address] [place] [phone] Phone Care Team Providers Care Egg Candler Name Role Phone Pcp, Unknown Primary Care [...] Devices Not on file Insurance [place] [address] [place], [place] [address] [place], [place] [address] [place] [address] [place] [address] [place] [place] [address] [place] [address] [place] [address] HMO Care Teams Egg Candler Relationship Specialty Start Date End Date Pcp, Unknown PCP - General 01/07/21 Additional Source Comments The information contained in this document represents components of the legal health record. It is not the complete legal health record.[facility]
== END 2025-05-10 07:51 | disposition home or self-care (01) ==
LOC: HO.MAMMO 07:50
DX: Z12.31 Encounter for screening mammogram for malignant neoplasm of breast (principal)
CPT/HCPCS: 77063; 77067

== ENCOUNTER → 2025-05-10 08:15 | Outpatient (BNV) | payer OTHER, SELFPAY | PROVIDERS: Visit Provider Internal Medicine | DX: Z12.31 Encounter for screening mammogram for malignant neoplasm of breast (principal) | CPT/HCPCS: 77063; 77067 ==